=== PATIENT | female | born 1980 | race Two or more races ===

== ENCOUNTER 2020-12-13 17:22 | Emergency (ER) | payer SELFPAY ==
[~2020-12-13] VITALS: Ht 165.1 cm; Wt 59.0 kg
[2020-12-13] MEDS ORDERED: IV NORMAL SALINE 1000ML BAG 1,000 ML IV ONE (17:30)
--- NOTE | 2020-12-13 17:36 | PHYS DOC ---
General Adult EDM: Chief Complaint: SEIZURE HPI: HPI: Patient is a 40 year old female with no significant medical history presenting today for via EMS from [employer] [facility] where she is employed, EMS states patient was found on the floor with seizure-like activities. It is unknown how long it lasted. Patient denies any previous medical history. She states she is a current smoker. Review of Systems: Review of Systems: Constitutional: Denies fever or chills. [] Eyes: Denies change in visual acuity. [] HENT: Denies nasal congestion or sore throat. [] Respiratory: Denies cough or shortness of breath. [] Cardiovascular: Denies chest pain or edema. [] GI: Denies abdominal pain, nausea, vomiting, bloody stools or diarrhea. [] : Denies dysuria. [] Musculoskeletal: Denies back pain or joint pain. [] Integument: Denies rash. [] Neurologic: EMS reports possible seizure. Denies headache, focal weakness or sensory changes. [] Psychiatric: Denies depression or anxiety. [] Heart Score: C/O Chest Pain: No Risk Factors: Risk Factors: DM, Current or recent (<one month) smoker, HTN, HLP, family history of CAD, obesity. Risk Scores: Score 0 - 3: 2.5% MACE over next 6 weeks - Discharge Home Score 4 - 6: 20.3% MACE over next 6 weeks - Admit for Clinical Observation Score 7 - 10: 72.7% MACE over next 6 weeks - Early Invasive Strategies Physical Exam: PE: Constitutional: Well developed, well nourished, no acute distress, non-toxic appearance. [] HENT: Normocephalic, bilateral external ears normal, oropharynx moist, no oral exudates, nose normal. [] Distal tongue with bruising suspicious of a seizure activity Eyes: PERRLA, EOMI, conjunctiva normal, no discharge. [] Neck: Normal range of motion, no tenderness, supple, no stridor. [] Cardiovascular:Heart rate regular rhythm, no murmur [] Lungs & Thorax: Bilateral breath sounds clear to auscultation [] Abdomen: Bowel sounds normal, soft, no tenderness, no masses, no pulsatile masses. [] Skin: Warm, dry, no erythema, no rash. [] Back: No tenderness, no CVA tenderness. [] Extremities: No tenderness, no cyanosis, no clubbing, ROM intact, no edema. [] Neurologic: Alert and oriented X 3, normal motor function, normal sensory function, no focal deficits noted. Cranial nerves II through XII intact. Psychologic: Affect normal, judgement normal, mood normal. [] EKG: EK interpreted by Dr. Ferguson sinus rhythm HR 74 no STEMI[] Radiology/Procedures: Radiology/Procedures: []PROCEDURE: CT HEAD WO CONTRAST CT head without contrast 12/13/2020. Reason for exam: Syncope. Possible seizure. Noncontrast images were performed. Exposure: One or more of the following individualized dose reduction techniques were utilized for this examination: 1. Automated exposure control 2. Adjustment of the mA and/or kV according to patient size 3. Use of iterative reconstruction technique. FINDINGS: There is no apparent intracranial mass, hemorrhage or abnormal extra- axial fluid collection. No area of abnormal density is seen in the brain. The ventricles and basilar cisterns are normally positioned. The sinuses and mastoid air cells are clear. IMPRESSION: No apparent acute abnormality. Electronically signed by: Tal Issa Jr., MD (12/13/2020 6:26 PM) [facility] DICTATED and SIGNED BY: TAL ISSA Jr, MD DATE: 12/13/[id number] 0 PROCEDURE: PORTABLE CHEST 1V EXAM: XR CHEST 1V 12/13/2020 6:19 PM CLINICAL INDICATION: Syncope COMPARISON: None TECHNIQUE: AP upright view of the chest FINDINGS: The heart and mediastinum are normal. Lungs are well-expanded and clear. No consolidation, pleural effusion, or pneumothorax. Pulmonary vascularity is normal. The thoracic skeleton is intact. IMPRESSION: Normal chest radiograph. Electronically signed by: Linn Castillo MD (12/13/2020 6:21 PM) [id number] DICTATED and SIGNED BY: LINN CASTILLO MD DATE: 12/13/[id number] 0 Course & Med Decision Making: Course & Med Decision Making Pertinent Labs and Imaging studies reviewed. (See chart for details) This is a 40-year-old female patient presented to the ED today to be evaluated after having a possible seizure at work. Patient has no previous history of seizures. She is currently a smoker and was advised to consider smoking cessation CT of the head is negative, chest x-ray interpreted by radiologist as negative for any acute findings, CBC with no acute findings, CMP with potassium of 2.8. Patient was given 80 mEq of potassium in the ED. Lactic 2.1 only. UA positive for UTI. UDS positive for marijuana use Spoke with Dr. Babin. He stated patient does not need to be admitted for first-time seizures. Considering we have already replaced potassium twice we will send patient home with potassium oral replacement. We also discussed potassium rich foods. She will follow-up with her PCP as well as Dr. Babin. Dragon Disclaimer: Dragon Disclaimer: This electronic medical record was generated, in whole or in part, using a voice recognition dictation system. Departure Departure Impression: Primary Impression: Hypokalemia Additional Impressions: Seizure Marijuana use Disposition: 01 DC HOME SELF CARE/HOMELESS Condition: STABLE Referrals: MARLENI SILVA MD call his office tomorrow and set up a follow up appointment Patient Instructions: Hypokalemia, Marijuana Abuse-Brief, Seizure, Adult Additional Instructions: You were evaluated in the emergency room after having a seizure. Please do not drive for 6 months. Please follow-up with the provided neurologist as soon as possible. Call his office tomorrow. Please increase your dietary potassium intake through foods like bananas, sweet potatoes Scripts Potassium Chloride (KLOR-CON 10) 10 Meq Tablet.er 20 MEQ PO DAILY for 5 Days, #10 TAB Prov: HUMAIRA BRUMFIELD APRN 12/13/20 HUMAIRA BRUMFIELD APRN Dec 13, 2020 17:36
[2020-12-13 17:52] LABS: BASO # 0.1 x10^3/uL (0.0-0.2); BASO % 1 % (0-3); EOS % 0 % (0-3); HEMATOCRIT 38.4 % (36.0-47.0); LYMPH # 0.9 x10^3/uL (1.0-4.8); LYMPH % 15 % (24-48); MEAN CORPUSCULAR HEMOGLOBIN 38 pg (25-35); MEAN CORPUSCULAR HGB CONC 34 g/dL (31-37); MEAN CORPUSCULAR VOLUME 112 fL (79-100); MONO # 0.4 x10^3/uL (0.0-1.1); MONO % 7 % (0-9); NEUT # 4.6 x10^3/uL (1.8-7.7); NEUT % 77 % (31-73); PLATELET COUNT 244 x10^3/uL (140-400); RED BLOOD COUNT 3.44 x10^6/uL (3.50-5.40); RED CELL DISTRIBUTION WIDTH 17.2 % (11.5-14.5)
[2020-12-13 17:55] LABS: BILIRUBIN,URINE NEGATIVE (NEG); CLARITY,URINE CLEAR; COLOR,URINE YELLOW; NITRITE,URINE NEGATIVE (NEG); PH,URINE 5.5 (<5.0-8.0); PROTEIN,URINE >=300 mg/dL (NEG-TRACE); UROBILINOGEN,URINE 0.2 mg/dL (0.2 mg/dL)
[2020-12-13 18:01] LABS: HYALINE CASTS, URINE MODERATE /HPF
[2020-12-13 18:02] LABS: BACTERIA,URINE 0 /HPF (0-FEW); WBC,URINE >40 /HPF (0-4)
[2020-12-13 18:14] LABS: ALBUMIN 3.6 g/dL (3.4-5.0); ALBUMIN/GLOBULIN RATIO 1.1 (1.0-1.7); CALCIUM 8.7 mg/dL (8.5-10.1); CREATININE 0.8 mg/dL (0.6-1.0); GFR 80.3; MAGNESIUM 1.7 mg/dL (1.8-2.4); TOTAL BILIRUBIN 0.6 mg/dL (0.2-1.0); TOTAL PROTEIN 6.9 g/dL (6.4-8.2)
[2020-12-13 18:15] LABS: BARBITURATES NEG (NEG); BENZODIAZEPINES NEG (NEG); CANNABINOIDS POS (NEG); COCAINE NEG (NEG); METHADONE NEG (NEG); OPIATES NEG (NEG); PHENCYCLIDINE NEG (NEG)
[2020-12-13 18:17] LABS: POTASSIUM 2.8 mmol/L (3.5-5.1)
[2020-12-13 18:18] LABS: AMPHETAMINE/METHAMPHETAMINE NEG (NEG)
[2020-12-13 18:20] LABS: ANISOCYTOSIS SLIGHT; PLT ESTIMATE ADEQUATE (ADEQUATE); POLYCHROMASIA SLIGHT
--- NOTE | 2020-12-13 18:23 | RAD ---
EXAM: XR CHEST 1V 12/13/2020 6:19 PM CLINICAL INDICATION: Syncope COMPARISON: None TECHNIQUE: AP upright view of the chest FINDINGS: The heart and mediastinum are normal. Lungs are well-expanded and clear. No consolidatio n, pleural effusion, or pneumothorax. Pulmonary vascularity is normal. The thoracic skeleton is int act. IMPRESSION: Normal chest radiograph. Electronically signed by: Linn Castillo MD (12/13/2020 6:21 PM) [id number]
--- NOTE | 2020-12-13 18:29 | RAD ---
CT head without contrast 12/13/2020. Reason for exam: Syncope. Possible seizure. Noncontrast images were performed. Exposure: One or more of the following individualized dose reducti on techniques were utilized for this examination: 1. Automated exposure control 2. Adjustment of th e mA and/or kV according to patient size 3. Use of iterative reconstruction technique. FINDINGS: There is no apparent intracranial mass, hemorrhage or abnormal extra-axial fluid collection . No area of abnormal density is seen in the brain. The ventricles and basilar cisterns are normally positioned. The sinuses and mastoid air cells are clear. IMPRESSION: No apparent acute abnormality. Electronically signed by: Ho Issa Jr., MD (12/13/2020 6:26 PM) [facility]
[2020-12-13] MEDS ORDERED: POTASSIUM CHLORIDE 20 MEQ TABLET.ER. PO ONE ×2 (18:30→20:30)
--- NOTE | 2020-12-13 19:08 | EKG ---
[facility] [address] [place] [address] Test Date: 2020-12-13 Test Time: 18:40:57 Pat Name: LEONA VELÁSQUZE Department: Room: Gender: F Medical Interpreter: : 1980 Requested By: HUMAIRA BRUMFIELD Order Number: [id number] Reading MD: Measurements Intervals [place] Rate: 74 P: 62 FL: 154 QRS: 66 QRSD: 94 T: 52 QT: 400 QTc: 444 Interpretive Statements SINUS RHYTHM NORMAL ECG RI6.02 No previous ECG available for comparison
[2020-12-13 20:18] VITALS: BP 119/71
[2020-12-13] MEDS ORDERED: POTA10TA12 PO (20:36)
== END 2020-12-13 20:50 | disposition home or self-care (01) ==
LOC: ER 17:22
DX: E87.6 Hypokalemia (principal); R56.9 Unspecified convulsions; F12.90 Cannabis use, unspecified, uncomplicated
CPT/HCPCS: 36415; 70450; 71045; 80053; 80307; 81001; 81025; 83605; 83735; 83880; 84443; 84484; 85025; 87086; 93005; 96360; 99285; J7030

== ENCOUNTER → 2021-01-14 | Outpatient (CLI) | payer OTHER ==
[~2021-01-14] MED LIST: POTA10TA12 PO
--- NOTE | 2021-01-15 08:50 | EEG ---
DATE OF SERVICE: 01/14/2021 EEG#: [id number] OBJECTIVE: The patient is a 40-year-old female with a single seizure on 12/13/2020. DESCRIPTION: This is a digital study. Electrodes are placed according to the international 10-20 system. Bipolar and referential montages are available. Activation procedures typically include hyperventilation and intermittent photic stimulation. INTERPRETATION: The waking background consists of 9-10 Hz, 50-100 microvolt activity, symmetrically distributed over parietooccipital regions and reactive to eye opening. Hyperventilation and intermittent photic stimulation are noncontributory. Stage 1 sleep was achieved with normal electroencephalogram patterns. IMPRESSION: This electroencephalogram with the patient awake and asleep is within normal limits. There is no focal, paroxysmal, or epileptiform activity. Thank you for letting us help with the patient's care. MARLENI SILVA MD DR: EFREN/iraida JOB#: [id number] / [id number]
== END ==
LOC: RT 07:53
PROVIDERS: ATTEND Nurse Practitioner Family
DX: R56.9 Unspecified convulsions (principal)
CPT/HCPCS: 95816